=== PATIENT | female | born 1980 | race American Indian/Alaskan Native ===

== ENCOUNTER 2018-10-18 09:43 | Emergency (ER) | payer OTHER ==
[2018-10-18 09:43] VITALS: BMI 26.6
[2018-10-18 10:10] VITALS: TEMP 99.2
[2018-10-18] MEDS ORDERED: Sodium Chloride 0.9% 1,000 ML IV STA (10:19)
[2018-10-18] MEDS ORDERED: DiphenhydrAMINE 50 mg/ml Inj IVP STA (10:19)
--- NOTE | 2018-10-18 10:19 | ED PDOC ---
Arrival/HPI - General Chief Complaint: Allergic Reaction Time Seen by Provider: 10/18/18 09:48 Historian: Patient - History of Present Illness Narrative History of Present Illness (Text): 10/18/18 10:18 37 year old female, whose past medical history includes chronic neck pain, presents to the emergency department complaining of post-nasal drip, sore throat, and throat tightness that began this morning. Patient reports she had an allergic reaction to the contrast from her Brain MRI yesterday and vomited right after. Patient was told to continue drinking water to flush out the contrast, but is unable to keep water down. Patient did not take any medications for the symptoms. Patient reports nausea, but denies any fever, chills, shortness of breath, chest pain, vomiting, diarrhea, urinary symptoms, back pain, neck pain, headache, dizziness, or any other complaints. PMD: Dr. David Yang Past Medical History - Provider Review Nursing Documentation Reviewed: Yes - Tetanus Immunization Tetanus Immunization: Unknown - Past Medical History Past Medical History: No Previous - Cardiac Hx Cardiac Disorders: No - Pulmonary Hx Respiratory Disorders: No - Neurological Hx Neurological Disorder: No - HEENT Hx HEENT Disorder: No - Renal Hx Renal Disorder: No - Endocrine/Metabolic Hx Endocrine Disorders: No - Hematological/Oncological Hx Blood Disorders: No - Integumentary Hx Dermatological Disorder: No - Musculoskeletal/Rheumatological Hx Musculoskeletal Disorders: No - Gastrointestinal Hx Gastrointestinal Disorders: No - Genitourinary/Gynecological Hx Genitourinary Disorders: No - Psychiatric Hx Anxiety: Yes Hx Substance Use: No - Past Surgical History Past Surgical History: No Previous - Suicidal Assessment Feels Threatened In Home Enviroment: No Family/Social History - Physician Review Nursing Documentation Reviewed: Yes Family/Social History: No Known Family HX Smoking Status: Never Smoked Hx Alcohol Use: Yes Frequency of alcohol use: Socially Hx Substance Use: No Hx Substance Use Treatment: No Allergies/Home Meds Allergies/Adverse Reactions: Allergies shellfish derived Adverse Reaction (Verified 10/18/18 09:52) ANAPHYLAXIS Home Medications: Home Meds Medication Instructions Recorded Confirmed Etonogestrel/Ethinyl Estradiol 1 icr VG Q30D 04/24/14 10/18/18 [Nuvaring] Montelukast [Singulair] 10 mg PO DAILY 10/18/18 10/18/18 Review of Systems - Physician Review All systems were reviewed & negative as marked: Yes - Review of Systems Constitutional: absent: Fevers Respiratory: absent: SOB Physical Exam - Physical Exam Narrative Physical Exam (Text): Constitutional: No acute distress. Head: Normocephalic. Atraumatic. Eyes: PERRL. ENT: No stirder, No visible airway edema. Moist mucous membranes. Neck: Supple. Cardiovascular: Regular rate. Chest: No tenderness. Respiratory: Clear to auscultation bilaterally. GI: Soft. Nontender. Nondistended. Back: No CVA tenderness. Musculoskeletal: No tenderness or swelling of extremities. Skin: No rash. Neurologic: Alert, no focal deficit. Vital Signs Reviewed: Yes Vital Signs Temp Pulse Resp BP Pulse Ox 10/18/18 09:46 99.2 F 121 H 20 132/79 96 Medical Decision Making ED Course and Treatment: 10/18/18 10:19 Impression: 37 year old female presents complaining of post-nasal drip, sore throat, and throat tightness that began this morning. Plan: -- Labs -- Benadryl, Maalox Plus, Pepcid, Solu-medrol, IV Fluids, Zofran Inj -- Reassess and disposition Progress Notes: Patient felt better after treatment and feels well to go home. - Lab Interpretations I have reviewed the lab results: Yes - Scribe Statement The provider has reviewed the documentation as recorded by the Chen Pegueor Provider Scribe Attestation: All medical record entries made by the Scribhank were at my direction and personally dictated by me. I have reviewed the chart and agree that the record accurately reflects my personal performance of the history, physical exam, medical decision making, and the department course for this patient. I have also personally directed, reviewed, and agree with the discharge instructions and disposition. Disposition/Present on Arrival - Present on Arrival Any Indicators Present on Arrival: No History of DVT/PE: No History of Uncontrolled Diabetes: No Urinary Catheter: No History of Decub. Ulcer: No History Surgical Site Infection Following: None - Disposition Have Diagnosis and Disposition been Completed?: Yes Diagnosis: Allergic reaction Disposition: HOME/ ROUTINE Disposition Time: 12:03 Patient Plan: Discharge Condition: GOOD Discharge Instructions (ExitCare): Angioedema Prescriptions: DiphenhydrAMINE [Benadryl] 2 cap PO Q8 #25 cap Famotidine [Pepcid] 1 tab PO BID #14 tab Prednisone [Deltasone] 3 tab PO DAILY #12 tablet Referrals: Mila Yang MD [Primary Care Provider] - Follow up with primary Forms: [employer] ([place]ian)
[2018-10-18] MEDS ORDERED: Aluminum Hydroxide/Magnesium 30 ML, DiphenhydrAMINE 75 MG, Lidocaine 2% Viscous 30 ML PO STA (10:20)
[2018-10-18 10:44] LABS: BASO # 0.02 K/mm3 (0.0-2.0); BASO % 0.4 % (0.0-3.0); EOS # 0.1 (0.0-0.7); EOS % 2.7 % (1.5-5.0); HEMOGLOBIN 13.7 g/dL (12.0-16.0); LYMPH # 0.9 (1.2-3.4); LYMPH % 18.7 % (22.0-35.0); MEAN CORPUSCULAR HEMOGLOBIN 29.7 pg (25.0-35.0); MEAN CORPUSCULAR HGB CONC 33.3 g/dl (31.0-37.0); MEAN PLATELET VOLUME 9.7 fl (7.0-11.0); MONO # 0.3 (0.1-0.6); MONO % 6.1 % (1.0-6.0); RBC 4.62 10^6/uL (3.5-6.1); RED CELL DISTRIBUTION WIDTH 12.8 % (11.5-14.5); WHITE BLOOD COUNT 4.8 10^3/uL (4.5-11.0)
[2018-10-18 10:56] LABS: ALB/GLOB RATIO 1.7 (1.1-1.8); ALBUMIN 4.5 g/dL (3.0-4.8); ALT/SGPT 26 U/L (7-56); AST/SGOT 24 U/L (14-36); BLOOD UREA NITROGEN 8 mg/dL (7-21); CALCIUM 9.3 mg/dL (8.4-10.5); GFR NON-AFRICAN AMERICAN > 60; LIPASE 64 U/L (23-300)
[2018-10-18 11:55] VITALS: BP 144/84; PULSE 89; RESP 18; O2SAT 98
== END 2018-10-18 12:13 | disposition home or self-care (01) ==
LOC: ED 09:43
DX: T78.40XA Allergy, unspecified, initial encounter (principal)
CPT/HCPCS: 80053; 81025; 83690; 85025; 96374; 96375; 99284; J1200; J2405; J2930; J7030